=== PATIENT | female | born 1970 | race Caucasian/White ===

== ENCOUNTER 2021-05-24 10:52 | Outpatient (CLI) | payer OTHER ==
[2021-05-25 11:50] LABS: SARS-CoV-2 PCR by NAA Not Detected (NotDetected)
== END 2021-05-24 10:53 | disposition home or self-care (01) ==
LOC: CSHLAB 10:52
PROVIDERS: ATTEND Internal Medicine Gastroenterology
DX: Z20.822 Contact with and (suspected) exposure to COVID-19 (principal); R10.9 Unspecified abdominal pain; Z12.11 Encounter for screening for malignant neoplasm of colon
CPT/HCPCS: U0003; U0005

== ENCOUNTER 2021-05-27 09:05 | Day surgery (SDC) | payer OTHER ==
[2021-05-18 11:35] VITALS: BMI 39.7
[2021-05-27] MEDS ORDERED: Lidocaine 1% MPF 2 ML VIAL ONE (10:19)
[2021-05-27] MEDS ORDERED: PROPOFOL 40 ML ONE (11:27)
[2021-05-27] MEDS ORDERED: Fentanyl 100 MCG/2 ML VIAL ONE (11:27)
[2021-05-27] MEDS ORDERED: PROPOFOL 20 ML ONE (12:02)
== END 2021-05-27 13:08 | disposition home or self-care (01) ==
LOC: CSHSDC 09:05
PROVIDERS: ATTEND Internal Medicine Gastroenterology
PROC: 0DJD8ZZ Inspection of Lower Intestinal Tract, Via Natural or Artificial Opening Endoscopic (ICD-10-PCS; principal; 2021-05-27)
PROC: 0DB68ZZ Excision of Stomach, Via Natural or Artificial Opening Endoscopic (ICD-10-PCS; principal; 2021-05-27)
DX: K29.70 Gastritis, unspecified, without bleeding (principal); K31.7 Polyp of stomach and duodenum; K25.9 Gastric ulcer, unspecified as acute or chronic, without hemorrhage or perforation; R10.9 Unspecified abdominal pain; K62.89 Other specified diseases of anus and rectum; E66.9 Obesity, unspecified; F32.A Depression, unspecified
CPT/HCPCS: 88305; J2704; J3010